=== PATIENT | female | born 1985 | race Caucasian/White ===

== ENCOUNTER 2020-06-15 14:37 | Emergency (ER) | payer OTHER ==
[~2020-06-15] VITALS: Ht 170.2 cm; Wt 85.3 kg
[2020-06-15 14:56] VITALS: BP 137/80
[2020-06-15] MEDS ORDERED: HYDROcodone/APAP 5/325MG 1 TAB TABLET PO ONE (15:15)
[2020-06-15] MEDS ORDERED: NEOMY/BACITR/POLYMYXIN OINT PACKET. TP ONE (15:15)
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
[2020-06-15] MEDS ORDERED: HYDR-3165 PO (15:36)
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
== END 2020-06-15 15:46 | disposition home or self-care (01) ==
LOC: ER 14:37
DX: T24.031A Burn of unspecified degree of right lower leg, initial encounter (principal); S80.02XA Contusion of left knee, initial encounter; V89.2XXA Person injured in unspecified motor-vehicle accident, traffic, initial encounter; Y93.89 Activity, other specified; Y92.89 Other specified places as the place of occurrence of the external cause; Y99.8 Other external cause status
CPT/HCPCS: 73562; 99283